=== PATIENT | female | born 1965 | race Caucasian/White ===

== ENCOUNTER → 2019-02-22 | Outpatient (CLI) | payer OTHER | LOC: M.LAB 01:18 | DX: E87.6 Hypokalemia (principal) ==

== ENCOUNTER → 2019-10-01 | Outpatient (CLI) | payer OTHER ==
--- NOTE | 2019-10-05 14:33 | SLEEP ---
[address] [address] SLEEP STUDY REPORT Name: ROGER WINSLOW [id number] Admission: 10/01/19 Attend Phys: Micaela Mejias RN Discharge: Date of : 67 Report #: [id number] THIS REPORT FOR: //name// CC: Larry Mejias This study has been reviewed in its entirety by a board certified sleep specialist DATE OF SERVICE: 10/01/2019 HOME SLEEP STUDY The patient 54-year-old who weighs 144 pounds with a BMI of 26.3. The patient's Whittington score was 6. The patient underwent home sleep study performed at [facility]. Total recording time was 354 minutes. During the night study, the patient had 14 obstructive apneas, 1 central apnea, no mixed apneas and 45 hypopneas. The patient's apnea-hypopnea index was 10.4 per hour. Nocturnal oximetry study revealed no clinically significant desaturation. The patient's average oxygen saturation of 95% with a lowest of 89%. Mean heart rate was 78 beats per minute. IMPRESSION: 1. Mild sleep apnea-hypopnea syndrome at an AHI of 10.4 per hour. 2. No clinically significant nocturnal hypoxia. RECOMMENDATIONS: 1. The patient has mild sleep apnea. If the patient has comorbid conditions or is clinically symptomatic, then the patient's sleep apnea can be treated with either CPAP or oral appliance. 2. Avoid [employer] depressants. 3. Cautioned regarding driving until symptoms of sleep apnea have resolved. <ELECTRONICALLY SIGNED> By: Darrion Han MD 10/05/19 [id number] Han MD /nt
== END ==
LOC: M.SLEEPLAB 11:00
DX: G47.33 Obstructive sleep apnea (adult) (pediatric) (principal); G47.30 Sleep apnea, unspecified